=== PATIENT | male | born 1990 | race Caucasian/White ===

== ENCOUNTER 2016-06-26 14:37 | Emergency (ER) | payer MEDICARE | END 2016-06-26 16:09 | disposition home or self-care (01) | LOC: ER1 14:37 | DX: L03.311 Cellulitis of abdominal wall (principal); G89.29 Other chronic pain; F17.210 Nicotine dependence, cigarettes, uncomplicated; Z79.899 Other long term (current) drug therapy | CPT/HCPCS: 99283 ==

== ENCOUNTER 2021-02-19 16:50 | Inpatient (IN) | payer OTHER ==
[~2021-02-19] VITALS: Ht 177.8 cm; Wt 70.3 kg
[~2021-02-19 16:50] MED LIST: CLEOCIN HCL300 MG PO; NAPROSYN500 MG PO
[2021-02-19 17:58] LABS: HEMOGLOBIN 16.5 gm/dl (14.0-17.5); RED BLOOD COUNT 4.94 M/UL (4.20-5.50); WHITE BLOOD COUNT 7.7 K/UL (4.5-11.0)
[2021-02-19 18:36] LABS: BUN/CREATININE RATIO 15 (0-10)
[2021-02-20 06:05] LABS: HEMOGLOBIN 14.6 gm/dl (14.0-17.5); RED BLOOD COUNT 4.46 M/UL (4.20-5.50); WHITE BLOOD COUNT 5.8 K/UL (4.5-11.0)
[2021-02-20 06:27] LABS: BUN/CREATININE RATIO 12 (0-10)
[2021-02-21 06:21] LABS: HEMOGLOBIN 13.9 gm/dl (14.0-17.5); RED BLOOD COUNT 4.28 M/UL (4.20-5.50)
[2021-02-21 06:23] LABS: WHITE BLOOD COUNT 4.2 K/UL (4.5-11.0)
[2021-02-21 06:50] LABS: BUN/CREATININE RATIO 5 (0-10)
[2021-02-21 08:10] LABS: HBSAG SCREEN Negative (Negative); HEP A AB, IGM Negative (Negative); HEP B CORE AB, IGM Negative (Negative); HEP C VIRUS AB >11.0 (0.0-0.9)
[2021-02-22 06:22] LABS: HEMOGLOBIN 14.6 gm/dl (14.0-17.5); RED BLOOD COUNT 4.5 M/UL (4.20-5.50); WHITE BLOOD COUNT 4.8 K/UL (4.5-11.0)
[2021-02-22 06:42] LABS: BUN/CREATININE RATIO 6 (0-10)
[2021-02-22] MEDS ORDERED: CLINDAMYCIN HC300 MG PO (11:32)
== END 2021-02-22 13:40 | disposition home or self-care (01) | DRG 603 ==
LOC: ER1 16:50 → CDU 19:11 → M/S 21:21
PROVIDERS: Internal Medicine; Student in an Organized Health Care Education/Training Program; ADMIT Internal Medicine
PROC: B24BZZZ Ultrasonography of Heart with Aorta (ICD-10-PCS; principal; 2021-02-20)
DX: L03.114 Cellulitis of left upper limb (principal); L03.113 Cellulitis of right upper limb; F19.10 Other psychoactive substance abuse, uncomplicated; E86.0 Dehydration; Z20.822 Contact with and (suspected) exposure to COVID-19; B19.20 Unspecified viral hepatitis C without hepatic coma; F11.10 Opioid abuse, uncomplicated; I07.1 Rheumatic tricuspid insufficiency; F17.210 Nicotine dependence, cigarettes, uncomplicated; Z82.49 Family history of ischemic heart disease and other diseases of the circulatory system
CPT/HCPCS: ECHO; 36415; 71045; 73130; 80048; 80053; 80074; 80202; 80307; 82550; 82553; 83036; 83605; 83735; 83874; 84439; 84443; 84484; 85025; 85652; 86140; 87040; 93005; 93306; 96374; 96375; 99284; G0480; J1650; J2405; J3370; J7050; U0002